=== PATIENT | female | born 1945 | race Caucasian/White ===

== ENCOUNTER → 2016-10-01 | Outpatient (CLI) | payer MEDICARE, OTHER ==
[~2016-10-01] MED LIST: FLUT9.9S PO; HYDR-3240 PO; LEVO125T PO; LEVO137T2 PO; LICORICE EXTRACT PO; LIOT5TAB6 PO; LORA0.5T PO; MULT1TAB60 PO; SENN15TA10 PO
[2016-10-01 13:17] LABS: BLOOD UREA NITROGEN 13 mg/dL (7-18)
== END | disposition home or self-care (01) ==
LOC: STAR 12:02
PROVIDERS: ATTEND Obstetrics & Gynecology Female Pelvic Medicine and Reconstructive Surgery
DX: Z01.811 Encounter for preprocedural respiratory examination (principal); K46.9 Unspecified abdominal hernia without obstruction or gangrene; N81.6 Rectocele; R39.15 Urgency of urination
CPT/HCPCS: 36415; 71020; 80048; 85025; 93005

== ENCOUNTER 2016-10-28 06:24 | Observation (INO) | payer MEDICARE, OTHER ==
[~2016-10-28] VITALS: Ht 165.1 cm; Wt 74.0 kg
[2016-10-28] MEDS ORDERED: LACTATED RINGERS 1,000 ML IV SCH (06:44)
[2016-10-28] MEDS ORDERED: MIDAZOLAM 1 MG/ML, 2ML ONE (07:19)
[2016-10-28] MEDS ORDERED: FENTANYL PF 250 MCG/5ML ONE (07:19)
[2016-10-28] MEDS ORDERED: ONDANSETRON 2MG/ML, 2ML ONE (07:54)
[2016-10-28] MEDS ORDERED: ROCURONIUM 10 MG/ML ONE (07:54)
[2016-10-28] MEDS ORDERED: PHENYLEPHRINE 10 MG/ML ONE (07:54)
[2016-10-28] MEDS ORDERED: CEFAZOLIN 1,000 MG ONE (07:54)
[2016-10-28] MEDS ORDERED: KETOROLAC 30 MG/1 ML ONE (07:54)
[2016-10-28] MEDS ORDERED: DEXAMETHASONE 4 MG/ML, 1ML ONE (07:54)
[2016-10-28] MEDS ORDERED: PROPOFOL 10 MG/ML, 20ML ONE (07:54)
[2016-10-28] MEDS ORDERED: NEOSTIGMINE 1 MG/ML, 10ML ONE (07:54)
[2016-10-28] MEDS ORDERED: GLYCOPYRROLATE 0.2MG/1ML ONE (07:54)
[2016-10-28] MEDS ORDERED: EPHEDRINE 50 MG/ML, 1ML ONE (07:54)
[2016-10-28] MEDS ORDERED: METOCLOPRAMIDE 5 MG/ML, 2ML IV PRN (09:00)
[2016-10-28] MEDS ORDERED: hydrALAzine 20 MG/ML, 1ML IV PRN (09:00)
[2016-10-28] MEDS ORDERED: PROMETHAZINE 25 MG/ML, 1ML IV PRN (09:00)
[2016-10-28] MEDS ORDERED: HYDROmorphone 1 MG/ML, 1ML IV PRN (09:00)
[2016-10-28] MEDS ORDERED: MIDAZOLAM 1 MG/ML, 2ML IV PRN (09:00)
[2016-10-28] MEDS ORDERED: LABETALOL 5MG/ML, 20ML IV PRN (09:00)
[2016-10-28] MEDS ORDERED: MEPERIDINE/PF 25MG/0.5ML IVPush PRN (09:00)
[2016-10-28] MEDS ORDERED: ALBUTEROL/IPRATROPIUM 2.5MG/0.5MG, 3 ML NPPB PRN (09:00)
[2016-10-28] MEDS ORDERED: ACETAMINOPHEN 325 MG TABLET PO PRN (09:00)
[2016-10-28] MEDS ORDERED: OXYcodone 5 MG/5 ML ORAL.SOL UDC PO PRN (09:00)
[2016-10-28] MEDS ORDERED: FENTANYL PF 100 MCG/2ML IV PRN (09:00)
[2016-10-28] MEDS ORDERED: ONDANSETRON 2MG/ML, 2ML IVPush PRN ×2 (09:00→10:30)
[2016-10-28] MEDS ORDERED: BUPIVACAINE/PF-EPI 0.5% 1:200K INFIL ONE (09:03)
[2016-10-28] MEDS ORDERED: THROMBIN 5,000 UNIT VIAL TP ONE ×2 (09:04→14:24)
[2016-10-28] MEDS ORDERED: NEOMY/POLYMYXIN B GU IRR. 1 ML IRRIG ONE ×2 (09:05→14:24)
[2016-10-28] MEDS ORDERED: FLUORESCEIN SODIUM 500 MG/5 ML IV ONE (09:07)
[2016-10-28] MEDS ORDERED: HYDROmorphone 1 MG/ML, 1ML ONE (09:25)
[2016-10-28] MEDS: LACTATED RINGERS 1,000 ML IV SCH ×2 (10:09→18:09)
[2016-10-28] MEDS ORDERED: PROMETHAZINE 25 MG SUPP PR ONE (10:30)
[2016-10-28] MEDS ORDERED: IBUPROFEN 600 MG TABLET PO PRN (10:30)
[2016-10-28] MEDS ORDERED: ACETAMINOPHEN 650 MG/20.3 ML UDC ONE (10:34)
[2016-10-28] MEDS ORDERED: FENTANYL PF 100 MCG/2ML ONE (10:34)
[2016-10-28] MEDS ORDERED: OXYcodone 5 MG/5 ML ORAL.SOL UDC ONE (10:35)
[2016-10-28] MEDS ORDERED: MEPERIDINE/PF 25MG/0.5ML ONE (10:35)
[2016-10-28] MEDS ORDERED: FLUORESCEIN SODIUM 500 MG/5 ML ONE (14:24)
[2016-10-28] MEDS ORDERED: BUPIVACAINE/PF-EPI 0.5% 1:200K ONE (14:24)
[2016-10-28] MEDS ORDERED: SCOPOLAMINE PATCH, 1.5MG PATCH.TD72 TD ONE (15:30)
[2016-10-28 18:09] VITALS: BP 116/71
[2016-10-28 19:21] VITALS: BP 111/63
[2016-10-28] MEDS: HYDROcodone/APAP 5/325 TABLET PO PRN ×2 (20:35→21:36)
[2016-10-28 21:52] VITALS: BP 122/70
== END 2016-10-28 21:39 | disposition home or self-care (01) ==
LOC: OUT 06:24 → ORIP 16:39 → 4NOR 17:53
PROVIDERS: ADMIT Obstetrics & Gynecology Female Pelvic Medicine and Reconstructive Surgery; ATTEND Obstetrics & Gynecology Female Pelvic Medicine and Reconstructive Surgery
DX: N99.3 Prolapse of vaginal vault after hysterectomy (principal); N81.6 Rectocele; N81.10 Cystocele, unspecified; N39.46 Mixed incontinence; N81.5 Vaginal enterocele; K46.9 Unspecified abdominal hernia without obstruction or gangrene; K59.00 Constipation, unspecified; M85.80 Other specified disorders of bone density and structure, unspecified site; N95.2 Postmenopausal atrophic vaginitis; Z80.0 Family history of malignant neoplasm of digestive organs; Z82.3 Family history of stroke; Z90.49 Acquired absence of other specified parts of digestive tract; Z90.710 Acquired absence of both cervix and uterus
CPT/HCPCS: 57260; 57288; 57425; C1771; C1781; G0378; J0690; J1100; J1170; J1885; J2175; J2250; J2370; J2405; J2704; J2710; J3010; J3490; J7120

== ENCOUNTER 2016-11-03 15:56 | Emergency (ER) | payer MEDICARE, OTHER ==
[~2016-11-03] VITALS: Ht 167.6 cm; Wt 76.0 kg
[2016-11-03] MEDS ORDERED: DIAZ5TAB PO (16:41)
[2016-11-03 17:24] LABS: PATH.CAST-FLAG NOT PRESENT; SPERM-FLAG NOT PRESENT; SRC-FLAG NOT PRESENT; XTAL-FLAG NOT PRESENT; YLC-FLAG NOT PRESENT
[2016-11-03 18:09] VITALS: BP 130/80
== END 2016-11-03 18:12 | disposition home or self-care (01) ==
LOC: ED 17:03
DX: R33.9 Retention of urine, unspecified (principal); E07.9 Disorder of thyroid, unspecified; Z90.722 Acquired absence of ovaries, bilateral
CPT/HCPCS: 51702; 81001